=== PATIENT | female | born 1965 | race Caucasian/White ===

== ENCOUNTER 2025-04-08 08:12 | Outpatient (CLI) | payer BC, SELFPAY ==
--- NOTE | ~2025-04-08 | DEXA_ITS ---
Bone Density Report Name: DALTON BERKOWITZ Age: 59 Sex: Female Ethnicity: White Date of : 1965 Indication: postmenopausal; screening for osteoporosis; height loss; Referring Provider: Enoch Brown Study: Bone densitometry was performed. Exam Date: April 08, 2025 Accession number: [id number] Bone Density: Region BMD T-score Z-score Classification AP Spine(L1-L4) 0.874 -1.6 -0.3 Osteopenia Femoral Neck (Left) 0.700 -1.3 -0.1 Osteopenia Total Hip (Left) 0.816 -1.0 -0.2 Normal Femoral Neck (Right) 0.683 -1.5 -0.3 Osteopenia Total Hip (Right) 0.804 -1.1 -0.3 Osteopenia Total Hip Mean 0.810 -1.1 -0.3 Osteopenia World Health Organization criteria for BMD impression classify patients as: Normal (T-score at or above -1.0), Osteopenia (T-score between -1.0 and -2.5), or Osteoporosis (T-score at or below -2.5). 10-year Fracture Risk(1): Major Osteoporotic Fracture 7.2% Hip Fracture 0.6% Reported Risk Factors: [place] (), Neck BMD=0.683, BMI=22.7 (1) FRAX(R) Version 3.08. Fracture probability calculated for an untreated patient. Fracture probability may be lower if the patient has received treatment. Clinical Information Provided by Patient: Has used the following medications: Vitamin D, Calcium Patient maximum height was 67 Menopause Age: 47 No regular weight bearing exercise Drinks caffeinated beverages Onset of menses at age 16 Number of children 3 Missed period for more than 6 months in a row Impression: The patient has low bone mass, based on the Total Spine T-score. The patient has an estimated ten-year risk of hip fracture of 0.6% and an estimated ten-year risk of major fracture of 7.2%, based on the WHO FRAX algorithm. Discussion: BONE DENSITY IS LOW AT ONE OR MORE SKELETAL SITES. This patient's lowest T-score is low at one or more skeletal sites. It meets the World Health Organization's (WHO) criteria for ?low bone mass? (T-score between -1.0 and -2.5). The patient's 10-year risk of fracture as calculated by FRAX is less than the threshold where pharmacological therapy is recommended by the National Osteoporosis Foundation (NOF). However, all treatment decisions require clinical judgment and consideration of individual patient factors, including patient preferences, comorbidities, previous drug use, risk factors not captured in the FRAX model (e.g., frailty, falls, vitamin D deficiency, increased bone turnover, interval significant decline in bone density) and possible under or overestimation of fracture risk by FRAX. The patient should follow a healthful lifestyle (good nutrition with adequate calcium and vitamin D, and appropriate weight-bearing exercise). Follow-Up: Consider repeating this study in 2 to 3 years to reassess this patient's status, or sooner if there is some new clinical indication. Reported by: NATHALIE on 04/08/2025 8:33:00 AM. Reviewed, dictated and finalized at location A.
== END 2025-04-08 08:13 | disposition home or self-care (01) ==
LOC: MICIMG 08:15
PROVIDERS: PCP Internal Medicine; Visit Provider Internal Medicine
DX: Z78.0 Asymptomatic menopausal state (principal)
CPT/HCPCS: 77080